=== PATIENT | female | born 1970 ===

== ENCOUNTER 2016-11-23 20:06 | Emergency (ER) | payer OTHER, BC ==
[2016-11-23 20:12] VITALS: TEMP 98.7; BMI 25.4
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
[2016-11-24 01:33] VITALS: BP 121/74; PULSE 76; RESP 18; O2SAT 99
--- NOTE | 2016-11-24 08:00 | RAD ---
PROCEDURE: Cervical Spine Radiographs. HISTORY: Pain. COMPARISON: None. FINDINGS: BONES: Alignment maintained. No fracture. Dens Intact. Straightening of normal lordotic curvature indicative of possible muscular spasm. DISC SPACES: Normal. SOFT TISSUES: Normal. No prevertebral soft tissue swelling. OTHER FINDINGS: None. IMPRESSION: No evidence of fracture/dislocation. Possible muscular spasm.
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
== END 2016-11-24 00:18 | disposition home or self-care (01) ==
LOC: ED 20:06
DX: S16.1XXA Strain of muscle, fascia and tendon at neck level, initial encounter (principal); S46.912A Strain of unspecified muscle, fascia and tendon at shoulder and upper arm level, left arm, initial encounter; V49.49XA Driver injured in collision with other motor vehicles in traffic accident, initial encounter; Y92.410 Unspecified street and highway as the place of occurrence of the external cause; R25.2 Cramp and spasm

== ENCOUNTER 2017-07-10 14:48 | Emergency (ER) | payer BC, OTHER ==
[2017-07-10 14:49] VITALS: BMI 25.4
[2017-07-10 15:53] LABS: BASO # 0.02 K/mm3 (0.0-2.0); BASO % 0.2 % (0.0-3.0); EOS # 0.1 (0.0-0.7); EOS % 0.6 % (1.5-5.0); GRAN # 6.12 (1.4-6.5); GRAN % 62.6 % (50.0-68.0); HEMATOCRIT 39.1 % (36.0-48.0); LYMPH # 2.8 (1.2-3.4); LYMPH % 28.6 % (22.0-35.0); MEAN CELL VOLUME 93.3 fl (80.0-105.0); MEAN CORPUSCULAR HEMOGLOBIN 32.5 pg (25.0-35.0); MEAN CORPUSCULAR HGB CONC 34.8 g/dl (31.0-37.0); MEAN PLATELET VOLUME 10.4 fl (7.0-11.0); MONO # 0.8 (0.1-0.6); RED CELL DISTRIBUTION WIDTH 13.2 % (11.5-14.5); WHITE BLOOD COUNT 9.8 10^3/ul (4.5-11.0)
--- NOTE | 2017-07-10 15:56 | ED PDOC ---
Arrival/HPI - General Chief Complaint: Weakness/Neurological Deficit Time Seen by Provider: 07/10/17 15:13 Historian: Patient - History of Present Illness Narrative History of Present Illness (Text): 07/10/17 15:52 46-year-old female with no significant past medical history, reports developing intermittent pressure like pain in the L upper chest associated with dyspnea. States that the symptoms started 2 hours ago at home while she was cleaning, she felt pain in the L occipital scalp and L posterior neck with dizziness, nausea and numbness to the b/l hands and cheeks of her face, lasted for a few mins, then resolved and recurred along with symptoms of L upper chest pressure. At this time, she only has symptoms of L upper chest pain that continues to wax and wane. Otherwise: (-) radiation, (-) diaphoresis, (-) pleuritic component, (- ) ripping or tearing quality, (-) positional component, (-) exertional component , (-) dizziness now, (-) headache, (-) syncope, (+) nausea, (-) vomiting, (-) abdominal pain, (-) recent travel, (-) similar symptoms prior, (-) h/o prior stress test, (-) calf swelling/pain, (-) neuro deficits. PMD Linares Past Medical History - Provider Review Nursing Documentation Reviewed: Yes - Infectious Disease Hx of Infectious Diseases: None - Tetanus Immunization Tetanus Immunization: Unknown - Cardiac Hx Cardiac Disorders: No - Pulmonary Hx Respiratory Disorders: No - Neurological Hx Neurological Disorder: No - HEENT Hx HEENT Disorder: No - Renal Hx Renal Disorder: No - Endocrine/Metabolic Hx Endocrine Disorders: No - Hematological/Oncological Hx Blood Disorders: No - Integumentary Hx Dermatological Disorder: No - Musculoskeletal/Rheumatological Other/Comment: NECK PAIN - Gastrointestinal Hx Gastrointestinal Disorders: No - Genitourinary/Gynecological Hx Genitourinary Disorders: No - Psychiatric Hx Psychophysiologic Disorder: No Hx Depression: No Hx Emotional Abuse: No Hx Physical Abuse: No Hx Substance Use: No - Surgical History Hx Section: Yes (X2) - Suicidal Assessment Feels Threatened In Home Enviroment: No Family/Social History - Physician Review Nursing Documentation Reviewed: Yes Family/Social History: Diabetes, Hypertension Smoking Status: Never Smoked Hx Alcohol Use: No Hx Substance Use: No Hx Substance Use Treatment: No Allergies/Home Meds Allergies/Adverse Reactions: Allergies No Known Allergies Allergy (Verified 03/13/13 18:32) Home Medications: Home Meds Medication Instructions Recorded Confirmed No Known Home Med 07/10/17 07/10/17 Review of Systems - Review of Systems Constitutional: absent: Fatigue, Weight Change, Fevers ENT: absent: Sore Throat, Rhinorrhea, Sinus Congestion Respiratory: absent: SOB, Cough, Sputum Cardiovascular: Chest Pain. absent: Palpitations, Edema Gastrointestinal: Nausea. absent: Abdominal Pain, Vomiting Musculoskeletal: Neck Pain. absent: Arthralgias, Back Pain Skin: absent: Rash, Pruritis, Skin Lesions Neurological: Headache, Dizziness. absent: Focal Weakness, Speech Changes Physical Exam - Physical Exam Narrative Physical Exam (Text): 07/10/17 15:58 GENERAL APPEARANCE: Patient is awake, alert, oriented x 3, in mild distress, is anxious and tearful. SKIN: Warm, dry; (-) cyanosis. EYES: (-) conjunctival pallor. ENMT: Mucous membranes moist. NECK: (-) tenderness, (-) stiffness, (-) lymphadenopathy, (-) JVD. CHEST AND RESPIRATORY: (-) rash, (-) chest wall tenderness. Lungs: (-) rales , (-) rhonchi, (-) wheezes, (-) rub; breath sounds equal bilaterally. HEART AND CARDIOVASCULAR: (-) irregularity; (-) murmur, (-) gallop, (-) rub. ABDOMEN AND GI: Soft; (-) distention, (-) tenderness, (-) palpable pulsatile mass. EXTREMITIES: (-) deformity; (-) edema, (-) calf tenderness. (+) distal pulses. NEURO AND PSYCH: Mental status as above. Cranial nerves grossly intact; strength symmetric. Vital Signs Temp Pulse Resp BP Pulse Ox 07/10/17 18:00 98.6 F 71 18 126/79 99 07/10/17 16:49 71 18 133/61 100 07/10/17 14:52 98.5 F 74 24 126/78 100 Medical Decision Making ED Course and Treatment: 07/10/17 15:56 46-year-old female with no significant past medical history, reports developing intermittent pressure like pain in the L upper chest associated with dyspnea. Plan: -- Labs -- IV -- EKG -- CXR -- manager athletics -- Asa 325 mg po / SL nitro -- Reassess and disposition EKG : NSR at 77 bpm, (-) acute ST changes, as read by MARCELLA. CXR : NAD, as read by PA Labs reviewed and are within normal limits, troponin negative, BNP negative. CT head shows no acute intracranial abnormalities. On reevaluation, patient reports significant improvement of her symptoms. Reports no chest pain, shortness of breath, dizziness, headache, nausea or vomiting. Vital signs stable. On exam lungs clear to auscultation, cardiac regular rate and rhythm, repeat neuro exam shows no focal findings. Based on history, exam and diagnostic results plan will be for inpatient observation for further cardiac workup. However the patient does not agree with this plan and wishes to leave AMA. Patient asked to reconsider and was advised of the reasons why she should stay for inpatient observation to r/o any ACS. Patient refuses inpatient observation / admission to the hospital. Patient informed of the reasons for the following and planned treatment, which patient understands, however still refuses. Patient informed of the risk and benefits of further inpatient observation / admission. Informed that the risk could include worsening of current conditions, undiagnosed conditions, disability or even . Patient understands the following risk and the benefits of treatment. Patient has the capacity to make decisions and still refuses treatment by RN, MARCELLA and ER MD. Patient encouraged to return to the ER at any time and to follow up with pmd. - Lab Interpretations Lab Results: 07/10/17 15:30 07/10/17 15:30 Lab Results 07/10/17 15:30: Sodium 140, Potassium 3.9, Chloride 106, Carbon Dioxide 23, Anion Gap 15, BUN 18, Creatinine 0.6 L, Est GFR ( Amer) > 60, Est GFR ( Non-Af Amer) > 60, Random Glucose 90, Calcium 9.5, Magnesium 1.8, Total Bilirubin 0.6, AST 29, ALT 30, Alkaline Phosphatase 53, Lactate Dehydrogenase 277 L, Total Creatine Kinase 106, Troponin I < 0.01, NT-Pro-B Natriuret Pep 46.0 , Total Protein 7.4, Albumin 4.4, Globulin 3.0, Albumin/Globulin Ratio 1.5 07/10/17 15:30: PT 11.1, INR 1.02, APTT 29.7 07/10/17 15:30: WBC 9.8, RBC 4.19, Hgb 13.6, Hct 39.1, MCV 93.3, MCH 32.5, MCHC 34.8, RDW 13.2, Plt Count 244, MPV 10.4, Gran % 62.6, Lymph % (Auto) 28.6, [place] % (Auto) 8.0 H, Eos % (Auto) 0.6 L, Baso % (Auto) 0.2, Gran # 6.12, Lymph # 2.8 , [place] # 0.8 H, Eos # 0.1, Baso # 0.02 - RAD Interpretation Narrative RAD Interpretations (Text): 07/10/17 21:47 CT head w/o contrast : FINDINGS: HEMORRHAGE: No intracranial hemorrhage. BRAIN: No mass effect or edema. No atrophy or chronic microvascular ischemic changes. VENTRICLES: No obstructive hydrocephalus. CALVARIUM: Unremarkable. PARANASAL SINUSES: The frontal sinuses are hypoplastic on particularly on the right. The remaining visualized paranasal sinuses are well-developed and currently well- aerated. No fluid levels seen to suggest acute sinusitis. . MASTOID AIR CELLS: Left mastoid air complexes slightly underpneumatized and sclerotic. OTHER FINDINGS: None. IMPRESSION: No acute intracranial hemorrhage. Radiology Orders: 07/10/17 15:30 CHEST PORTABLE [RAD] Stat 07/10/17 15:31 HEAD W/O CONTRAST [CT] Stat - Medication Orders Current Medication Orders: Discontinued Medications Aspirin (Aspirin) 325 mg PO STAT STA Stop: 07/10/17 15:30 Last Admin: 07/10/17 16:39 Dose: 325 mg Nitroglycerin (Nitrostat Sl Tab) 0.4 mg SL STAT STA Stop: 07/10/17 15:30 Last Admin: 07/10/17 16:39 Dose: 0.4 mg - PA / [employer] MECH[employer]IC / Resident Statement MD/DO has reviewed & agrees with the documentation as recorded. Disposition/Present on Arrival - Present on Arrival Any Indicators Present on Arrival: No History of DVT/PE: No History of Uncontrolled Diabetes: No Urinary Catheter: No History of Decub. Ulcer: No History Surgical Site Infection Following: None - Disposition Have Diagnosis and Disposition been Completed?: Yes Diagnosis: Chest pain Disposition: AGAINST MEDICAL ADVICE Disposition Time: 18:15 Patient Plan: Other (Patient wishes to leave AMA) Condition: UNKNOWN Discharge Instructions (ExitCare): Chest Pain (ED), Against Medical Advice (ED) Print Language: MONTENEGRIN Additional Instructions: Thank you for letting us take care of you today. You were treated for chest pain. The emergency medical care you received today was directed at your acute symptoms. Return to the Emergency Department if your symptoms worsen, do not improve, or if you change her mind. Please contact your doctor in 2 days for re-evaluation and follow up. Bring any paperwork you were given at discharge with you along with any medications you are taking to your follow up visit. Our treatment cannot replace ongoing medical care by a primary care provider (PCP) outside of the emergency department. Thank you for allowing the [facility] team to be part of your care today. If you had an X-Ray or CT scan: A Radiologist will review the ED reading if any change in treatment is needed we will contact you. Referrals: Renuka Linares DO [Primary Care Provider] - Follow up with primary Forms: [employer] (Uzbek)
[2017-07-10 15:58] LABS: ALB/GLOB RATIO 1.5 (1.1-1.8); ALKALINE PHOSPHATASE 53 U/L (38-126); ALT/SGPT 30 U/L (7-56); AST/SGOT 29 U/L (14-36); BILIRUBIN,TOTAL 0.6 mg/dL (0.2-1.3); BLOOD UREA NITROGEN 18 mg/dL (7-21); CALCIUM 9.5 mg/dL (8.4-10.5); CARBON DIOXIDE 23 mmol/L (21-33); CHLORIDE 106 mmol/L (98-107); GFR AFRICAN-AMERICAN > 60; GLUCOSE,RANDOM 90 mg/dL (70-110); MAGNESIUM 1.8 mg/dL (1.7-2.2); POTASSIUM 3.9 mmol/L (3.6-5.0); SODIUM 140 mmol/L (132-148); TOTAL PROTEIN 7.4 g/dL (5.8-8.3)
[2017-07-10 16:01] LABS: INR 1.02 (0.93-1.08); PARTIAL THROMBOPLASTIN TIME 29.7 Seconds (25.1-36.5)
[2017-07-10 16:09] LABS: TROPONIN I < 0.01 ng/mL
[2017-07-10 17:57] VITALS: PULSE 71; RESP 18
--- NOTE | 2017-07-10 18:08 | CT ---
PROCEDURE: CT HEAD WITHOUT CONTRAST. HISTORY: dizziness COMPARISON: None available. TECHNIQUE: Axial computed tomography images were obtained through the head/brain without intravenous contrast. Radiation dose: Total exam DLP = 726.57 mGy-cm. This CT exam was performed using one or more of the following dose reduction techniques: Automated exposure control, adjustment of the mA and/or kV according to patient size, and/or use of iterative reconstruction technique. FINDINGS: HEMORRHAGE: No intracranial hemorrhage. BRAIN: No mass effect or edema. No atrophy or chronic microvascular ischemic changes. VENTRICLES: No obstructive hydrocephalus. CALVARIUM: Unremarkable. PARANASAL SINUSES: The frontal sinuses are hypoplastic on particularly on the right. The remaining visualized paranasal sinuses are well-developed and currently well-aerated. No fluid levels seen to suggest acute sinusitis. . MASTOID AIR CELLS: Left mastoid air complexes slightly underpneumatized and sclerotic. OTHER FINDINGS: None. IMPRESSION: No acute intracranial hemorrhage.
[2017-07-10 18:26] VITALS: BP 126/79; TEMP 98.6; O2SAT 99
--- NOTE | 2017-07-11 10:09 | RAD ---
HISTORY: chest pain COMPARISON: No prior. FINDINGS: LUNGS: No active pulmonary disease. PLEURA: No significant pleural effusion identified, no pneumothorax apparent. CARDIOVASCULAR: Normal. OSSEOUS STRUCTURES: No significant abnormalities. VISUALIZED UPPER ABDOMEN: Normal. OTHER FINDINGS: None. IMPRESSION: No active disease.
--- NOTE | 2017-07-11 20:08 | CARD ---
APPROVED REPORT EKG Measurement Heart [id number] <Conclusion> Normal sinus rhythm with sinus arrhythmia Nonspecific ST abnormality Abnormal ECG
== END 2017-07-10 18:40 | disposition left against medical advice (07) ==
LOC: ED 14:48
DX: R07.9 Chest pain, unspecified (principal)